=== PATIENT | female | born 1955 | race Caucasian/White ===

== ENCOUNTER → 2017-02-02 | Outpatient (CLI) | payer BC ==
--- NOTE | 2017-02-02 14:35 | MAMMOGRAPHY REPORT ---
BILATERAL DIGITAL SCREENING MAMMOGRAM WITH CAD: 02/02/2017 CLINICAL HISTORY: Routine screening. Patient has no complaints. TECHNIQUE: Current study was also evaluated with a Computer Aided Detection (CAD) system. Bilateral CC and MLO views were obtained. COMPARISON: Comparison is made to exams dated: 02/01/2016 mammogram, 01/28/2015 mammogram, 02/05/2014 ma mmogram, 01/27/2014 mammogram, 01/24/2013 mammogram, and 01/23/2012 mammogram - [facility] nter. BREAST COMPOSITION: There are scattered areas of fibroglandular density in both breasts. FINDINGS: No suspicious masses, calcifications, or areas of architectural distortion are noted in ei ther breast. There has been no significant interval change compared to prior exams. Small 5 mm focal asymmetry within the right 6:00 breast appears stable compared to multiple prior exams, including th e 2009 and 2007 exams on the MLO view, and considered benign given long-term stability. IMPRESSION: ACR BI-RADS CATEGORY 2: BENIGN There is no mammographic evidence of malignancy. A 1 year screening mammogram is recommended. The pa tient will receive written notification of the results. Approximately 10% of breast cancers are not detected with mammography. A negative mammographic report should not delay biopsy if a clinically suggestive mass is present. Anastasiya Ibarra M.D. /:02/02/2017 08:40:25 Forensic Pathologist: Lottie HERNANDEZ)(Katie)([place]), [facility] letter sent: Normal 1/2 BI-RADS Code: ACR BI-RADS Category 2: Benign
== END | disposition home or self-care (01) ==
LOC: C.MAMM 08:09
PROVIDERS: ATTEND Obstetrics & Gynecology
DX: Z12.31 Encounter for screening mammogram for malignant neoplasm of breast (principal)

== ENCOUNTER → 2017-05-26 | Outpatient (CLI) | payer BC | END | disposition home or self-care (01) | LOC: C.PAPS 14:13 | PROVIDERS: ATTEND Obstetrics & Gynecology | DX: Z01.419 Encounter for gynecological examination (general) (routine) without abnormal findings (principal) ==

== ENCOUNTER → 2017-07-17 | Outpatient (CLI) | payer BC ==
--- NOTE | 2017-07-17 09:32 | DIAGNOSTIC IMAGING REPORT ---
CHEST 2 VIEWS ROUTINE CLINICAL HISTORY: Z00.00 Health XdhgaafjmoqT82.9 OdjefrfkgT14.01 [id number] COMPARISON STUDY: No previous studies for comparison. FINDINGS: The cardiac and mediastinal contours are normal. There is no evidence of focal pulmonary consolidation. There is no evidence of failure. No pleural effusions are visualized.[ There is a mild thoracic scoliosis. IMPRESSION: No active disease in the chest. Electronically signed by: Alvin Osorio M.D. 07/17/2017 9:31 AM Dictated Date/Time: 07/17/2017 9:31 AM
== END | disposition home or self-care (01) ==
LOC: C.RAD1850 09:19
PROVIDERS: ATTEND Internal Medicine Pulmonary Disease
DX: Z00.00 Encounter for general adult medical examination without abnormal findings (principal); J18.9 Pneumonia, unspecified organism; J98.01 Acute bronchospasm

== ENCOUNTER → 2017-07-20 | Outpatient (CLI) | payer BC ==
[2017-07-20 10:38] LABS: BASO ABS # 0.04 K/uL (0-0.2); COMPLETE YES; HEMATOCRIT 41.5 % (37-47); IG% 0.3 %; LYMPH % 39.3 %; LYMPH ABS # 1.56 K/uL (1.2-3.4); MEAN CELL VOLUME 87.9 fL (80-100); MEAN CORPUSCULAR HEMOGLOBIN 29.9 pg (25-34); MEAN PLATELET VOLUME 9.1 fL (7.4-10.4); MONO % 9.6 %; NEUT % 45.8 %; PLATELET COUNT 309 K/uL (130-400); RED BLOOD COUNT 4.72 M/uL (4.2-5.4); WHITE BLOOD COUNT 3.97 K/uL (4.8-10.8)
[2017-07-20 10:50] LABS: ALKALINE PHOSPHATASE 51 U/L (45-117); ALT/SGPT 39 U/L (12-78); AST/SGOT 25 U/L (15-37); BLOOD UREA NITROGEN 17 mg/dl (7-18); BUN/CREATININE RATIO 23.5 (10-20); CALCIUM 8.6 mg/dl (8.5-10.1); CARBON DIOXIDE 29 mmol/L (21-32); CHLORIDE 106 mmol/L (98-107); CREATININE 0.71 mg/dl (0.60-1.20); GLUCOSE 82 mg/dl (70-99); HDL CHOLESTEROL 72 mg/dl; POTASSIUM 3.8 mmol/L (3.5-5.1); SODIUM 138 mmol/L (136-145)
[2017-07-20 10:51] LABS: ESTIMATED AVERAGE GLUCOSE 103 mg/dl; HA1C FLAG Normal (Normal)
[2017-07-20 11:03] LABS: CHOLESTEROL 149 mg/dl (0-200); CHOLESTEROL/HDL RATIO 2.1; LDL CHOLESTEROL CALCULATED 57 mg/dl; TRIGLYCERIDES 99 mg/dl (0-150); VERY LOW DENSITY LIPOPROT CALC 20 mg/dl
== END | disposition home or self-care (01) ==
LOC: C.LAB1850 09:16
PROVIDERS: ATTEND Internal Medicine Pulmonary Disease
DX: Z00.00 Encounter for general adult medical examination without abnormal findings (principal); J18.9 Pneumonia, unspecified organism; J98.01 Acute bronchospasm

== ENCOUNTER → 2017-09-06 | Outpatient (CLI) | payer OTHER ==
[2017-09-06 17:34] LABS: INFLUENZA B ANTIGEN Neg for Influ B (NEG)
== END | disposition home or self-care (01) ==
LOC: C.LAB1850 15:55
PROVIDERS: ATTEND Internal Medicine Pulmonary Disease
DX: J11.1 Influenza due to unidentified influenza virus with other respiratory manifestations (principal)

== ENCOUNTER 2018-03-17 15:05 | Emergency (ER) | payer OTHER ==
[~2018-03-17] VITALS: Ht 162.6 cm; Wt 71.3 kg
[2018-03-17 15:09] VITALS: TEMP 36.5; Ht 162.6 cm; Wt 71.3 kg
[2018-03-17] MEDS ORDERED: PROPARACAINE HCL 0.5% OP SOLN 15 ML BTL ONE (15:18)
[2018-03-17] MEDS ORDERED: ASPI81TA28 PO (15:52)
[2018-03-17] MEDS ORDERED: OMEG10007 PO (15:52)
[2018-03-17] MEDS ORDERED: ATOR10TA82 PO (15:52)
[2018-03-17] MEDS ORDERED: GLC/500 PO (15:52)
[2018-03-17] MEDS ORDERED: GLYCDRO6 OP (15:52)
[2018-03-17] MEDS ORDERED: MULT-240 PO (15:52)
[2018-03-17 16:29] VITALS: BP 157/86; PULSE 68; O2SAT 100
--- NOTE | 2018-03-17 19:36 | EMERGENCY ROOM VISIT NOTE ---
History First contact with patient: 15:12 Chief Complaint: EYE ASSESSMENT Stated Complaint: CHEMICAL BURN IN RIGHT EYE,CLOUDY,IRRITATED History of Present Illness The patient is a 62 year old female who presents to the Emergency Room with complaints of irritation and blurred vision of the right eye. The patient reports that at approximately 1:30 PM, she squirted Hannah dish detergent in her eye. The patient reports that she irrigated her eye with water twice for a total of approximately 15-20 minutes. She reports persistent irritation. The patient rates her discomfort a 5 out of 10. The patient follows with Dr. Marte for history of glaucoma and cataracts. Review of Systems 10 system review was performed and was negative except for pertinent positives and negatives as indicated in history of present illness Past Medical/Surgical History Medical Problems: (1) Glaucoma (2) Pneumonia, Unspecified Organism Surgical Problems: (1) History of cataract surgery (2) S/P LASIK surgery of both eyes Family History Unremarkable Social History Smoking Status: Never Smoker Alcohol Use: none Marital Status: Housing Status: lives with family Occupation Status: employed Current/Historical Medications Scheduled Aspirin (Aspirin Ec), 81 MG PO DAILY Atorvastatin (Lipitor), 10 MG PO DAILY Fish Oil (Mark-3), 4 CAP PO DAILY Metformin Hcl (Glucophage), 500 MG PO BID Multiple Vitamins W/ Minerals (Womens One Daily), 1 TAB PO DAILY Scheduled PRN Sqgxxeui-Hyvjrxltbsdo-Uqgajmqv (Artificial Tears), 1 DROP OP UD PRN for Dry Eye( s) Physical Exam Vital Signs Date Time Temp Pulse Resp B/P (MAP) Pulse Ox O2 Delivery O2 Flow Rate FiO2 03/17/18 16:29 68 16 157/86 100 Room Air 03/17/18 15:09 36.5 80 16 152/79 98 Room Air Right Eye Acuity: 20/50 Left Eye Acuity: 20/40 Physical Exam CONSTITUTIONAL: Healthy and well nourished. Alert and oriented X 3 with positive affect. Patient appears in mild discomfort. HEENT: Examination of the right eye shows conjunctival injection without any tearing or mucopurulent drainage. Pupils equal, round and reactive. EOMs intact without discomfort. NECK: Full active range of motion without discomfort. INTEGUMENTARY: No rash or other significant dermatologic conditions noted. NEUROLOGIC: Facial sensations are intact. Medical Decision & Procedures Medications Administered Medications (Trade) Dose Ordered Sig/Alberta Route Start Time Stop Time Status Last Admin Dose Admin Proparacaine HCl (Alcaine 0.5% Oph Soln) 225 drops STK-MED ONCE .ROUTE 03/17/18 15:18 03/17/18 15:19 DC 03/17/18 15:25 225 DROPS Procedure Slit-lamp and fluorescein exam were performed after instilling 2 drops of Alcaine into the right eye. This completely resolved the patient's discomfort. Slit lamp exam does not show any foreign debris within the eye. No hyphema or obvious cell and flare. Fluorescein exam shows generalized punctate uptake of the cornea and conjunctival. After this exam was performed. A Gigi lens irrigation with a liter of normal saline was administered. ED Course Patient history and physical exam were performed. Nurse's notes were reviewed. Vital signs were reviewed, showing a mildly elevated blood pressure of 152/ 79. Slit-lamp and fluorescein exam shows a chemical conjunctivitis with mild punctate uptake consistent with chemical conjunctivitis/keratitis. Gigi lens irrigation was performed. The patient was encouraged to intermittently apply a cool compress to the eye. I also recommended use of Lacri-Lube for lubrication and additional symptomatic relief. Ibuprofen or Tylenol as needed for pain. 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 She is also welcome to return to the emergency department as needed. The patient was happy with plan of care, voiced understanding of all discharge instructions, and denied any significant discomfort at the time of discharge. Medical Decision Blood Pressure Screening Patient's blood pressure: Elevated blood pressure Blood pressure disposition: Elevated BP felt to be situational, Did not require urgent referral Impression Primary Impression: Chemical conjunctivitis of right eye Departure Information Dispostion Home / Self-Care Referrals Mark Marte O.D. Forms WORK / SCHOOL INSTRUCTIONS, HOME CARE DOCUMENTATION FORM, IMPORTANT VISIT INFORMATION Patient Instructions [facility] ([employer]) Additional Instructions Intermittently apply a cool compress to the right eye. You may also purchase Lacri-Lube from your local pharmacy for further comfort. Ibuprofen or Tylenol as needed for pain. Follow-up with your tire builder if symptoms are not improving within the next 48 hours.
== END 2018-03-17 16:39 | disposition home or self-care (01) ==
LOC: C.EDB 15:06 → C.EDD 16:39
DX: H10.211 Acute toxic conjunctivitis, right eye (principal); H40.9 Unspecified glaucoma; Z79.82 Long term (current) use of aspirin; Z79.84 Long term (current) use of oral hypoglycemic drugs; Z79.899 Other long term (current) drug therapy